=== PATIENT | female | born 1980 | race Caucasian/White ===

== ENCOUNTER 2018-03-31 12:24 | Outpatient (CLI) | payer MEDICAID | END 2018-03-31 13:35 | disposition home or self-care (01) | LOC: OBT 12:24 → L-D 12:24 → OBT 13:35 | DX: O36.8130 Decreased fetal movements, third trimester, not applicable or unspecified (principal); O09.523 Supervision of elderly multigravida, third trimester; Z3A.31 31 weeks gestation of pregnancy | CPT/HCPCS: 76818 ==

== ENCOUNTER 2018-05-31 15:35 | Inpatient (IN) | payer MEDICAID ==
[2018-05-31] MEDS ORDERED: MISOPROSTOL 200 MCG TAB PR (16:30)
[2018-05-31] MEDS ORDERED: CARBOPROST 250 MCG INJ IM (16:30)
[2018-05-31] MEDS ORDERED: AMPICILLIN 2 GM/NS (PMX) 100 ML IV (16:30)
[2018-05-31] MEDS ORDERED: METHYLERGONOVINE 0.2 MG INJ IM (16:30)
[2018-05-31] MEDS ORDERED: OXYTOCIN 30 UNITS/LR 500 ML IV (16:30)
[2018-05-31] MEDS ORDERED: LIDOCAINE 1% (MPF) 30 ML INJ INJ (16:30)
[2018-05-31] MEDS: LACTATED RINGER'S 1,000 ML IV* ×2 (17:05→23:23)
[2018-05-31 17:15] LABS: ADD MAN DIFF? NO
[2018-05-31 17:16] LABS: WHITE BLOOD COUNT 9.1 10^3/ul (4.8-10.8)
[2018-05-31 17:16] LABS: BASOPHILS % 0.4 % (0.0-2.0); EOSINOPHILS # 0.1 10^3/ul (0.0-0.5); EOSINOPHILS % 0.5 % (0.0-7.0); HEMATOCRIT 41.1 % (37.0-47.0); HEMOGLOBIN 14.5 g/dl (12.0-16.0); LYMPHOCYTES # 1.6 10^3/ul (0.8-2.9); LYMPHOCYTES % 17.2 % (15.0-51.0); MEAN CORPUSCULAR HEMOGLOBIN 31.9 pg (29.0-33.0); MEAN CORPUSCULAR HGB CONC 35.3 g/dl (32.0-37.0); MEAN CORPUSCULAR VOLUME 90.5 fl (82.0-101.0); MEAN PLATELET VOLUME 10.1 fl (7.4-10.4); MONOCYTE # 0.6 10^3/ul (0.3-0.9); MONOCYTES % 6.8 % (0.0-11.0); NEUTROPHIL # 6.7 10^3/ul (1.6-7.5); NEUTROPHILS % 73.9 % (39.0-77.0); PLATELET COUNT 262 10^3/UL (140-415); RED BLOOD COUNT 4.54 10^6/ul (4.20-5.40); RED CELL DISTRIBUTION WIDTH 13.6 % (11.5-14.5)
[2018-05-31 17:40] LABS: INR 0.93; PROTIME 12.5 Sec (11.9-14.9)
[2018-05-31 18:16] LABS: HEPATITIS B SURFACE ANTIGEN NEGATIVE (NEGATIVE)
[2018-05-31] MEDS ORDERED: AMPICILLIN 1 GM/NS (PMX) 50 ML IV (20:30)
[2018-05-31] MEDS: BUTORPHANOL 2 MG INJ IV (23:32)
[2018-06-01] MEDS ORDERED: LIDOCAINE 0.5% (SDV) 50 ML INJ (00:09)
[2018-06-01] MEDS: OXYTOCIN 30 UNITS/LR 500 ML IV ×2 (01:16→01:30)
[2018-06-01] MEDS: IBUPROFEN 600 MG TAB PO ×5 (01:32→23:35)
[2018-06-01] MEDS ORDERED: OXYTOCIN 30 UNITS/LR 500 ML IV ×2 (01:36→02:00)
[2018-06-01] MEDS ORDERED: LACTATED RINGER'S 1,000 ML IV* (01:36)
[2018-06-01] MEDS ORDERED: CARBOPROST 250 MCG INJ IM (02:00)
[2018-06-01] MEDS ORDERED: LANOLIN 7 GM TUBE TOP (02:00)
[2018-06-01] MEDS ORDERED: HYDROCODONE/APAP (5/325) TAB PO (02:00)
[2018-06-01] MEDS ORDERED: MISOPROSTOL 200 MCG TAB PR (02:00)
[2018-06-01] MEDS ORDERED: METHYLERGONOVINE 0.2 MG INJ IM (02:00)
[2018-06-01 16:06] LABS: RHOGAM PROFILE 1 1
[2018-06-01 16:31] LABS: RAPID PLASMA REAGIN NONREACTIVE (NR)
[2018-06-02] MEDS: IBUPROFEN 600 MG TAB PO ×4 (05:21→23:33)
[2018-06-02 08:08] LABS: ADD MAN DIFF? NO
[2018-06-02 08:13] LABS: WHITE BLOOD COUNT 8.9 10^3/ul (4.8-10.8)
[2018-06-02 08:13] LABS: BASOPHILS % 0.4 % (0.0-2.0); EOSINOPHILS # 0.1 10^3/ul (0.0-0.5); EOSINOPHILS % 1.6 % (0.0-7.0); HEMATOCRIT 36.8 % (37.0-47.0); HEMOGLOBIN 12.8 g/dl (12.0-16.0); LYMPHOCYTES # 1.8 10^3/ul (0.8-2.9); LYMPHOCYTES % 20.7 % (15.0-51.0); MEAN CORPUSCULAR HEMOGLOBIN 32.2 pg (29.0-33.0); MEAN CORPUSCULAR HGB CONC 34.8 g/dl (32.0-37.0); MEAN CORPUSCULAR VOLUME 92.5 fl (82.0-101.0); MEAN PLATELET VOLUME 10.2 fl (7.4-10.4); MONOCYTE # 0.8 10^3/ul (0.3-0.9); MONOCYTES % 8.8 % (0.0-11.0); NEUTROPHILS % 67.2 % (39.0-77.0); PLATELET COUNT 240 10^3/UL (140-415); RED BLOOD COUNT 3.98 10^6/ul (4.20-5.40)
[2018-06-03] MEDS: IBUPROFEN 600 MG TAB PO ×2 (05:42→12:39)
[2018-06-03] MEDS: DIPHTH/TET/ACEL PERTUSS (ADULT) 0.5 ML VIAL IM* (12:39)
== END 2018-06-03 15:40 | disposition home or self-care (01) | DRG 807 ==
LOC: PP1 06-01 02:40 → L-D 15:35
PROVIDERS: Obstetrics & Gynecology
PROC: 10E0XZZ Delivery of Products of Conception, External Approach (ICD-10-PCS; principal; 2018-06-01)
PROC: 0HQ9XZZ Repair Perineum Skin, External Approach (ICD-10-PCS; 2018-06-01)
PROC: 0UQMXZZ Repair Vulva, External Approach (ICD-10-PCS; 2018-06-01)
DX: O70.0 First degree perineal laceration during delivery (principal); Z37.0 Single live birth; Z3A.40 40 weeks gestation of pregnancy
CPT/HCPCS: 85025; 85610; 85730; 86592; 86850; 86870; 86885; 86900; 86901; 87340; 90686; 90715; 99464